=== PATIENT | female | born 1965 | race Caucasian/White ===

== ENCOUNTER 2025-04-28 14:43 | Emergency (ER) | payer OTHER, SELFPAY ==
[2025-04-28 15:10] VITALS: BP 179/83; PULSE 92; RESP 20; TEMP 36.4; O2SAT 99; BMI 24.0
--- NOTE | 2025-04-28 15:16 | ED.GENADULT ---
HPI - General Adult General Chief complaint: Weakness Stated complaint: weak, weight loss Time Seen by Provider: 04/28/25 15:17 History of Present Illness HPI narrative: Arrives with complaints of weakness that started today, and weight loss . Reports she has lost 40 lbs over the past few months, despite eating normally and not trying to lose weight. Alert and oriented, VSS, ABCs intact. 60-year-old woman presenting to the emergency department with concern of weakness or fatigue and weight loss. Somewhere since the beginning of the year has lost approximately 40 lb. Does sound like she has an active job. She might not eat over the course the day but makes up for it in the evenings. She feels she has a healthy appetite. Does have a more remote history of diabetes and was ultimately discontinued from metformin. She has not been to a medical provider in a very long time and her significant other's finally coaxed her to come in to the emergency department for evaluation. She has not been experiencing any chest or abdominal pain. No unusual stooling. No urinary frequency. No chest pain or shortness of breath. No unusual lumps or masses. She does not do self-breast exams. She did have a colonoscopy and reports that to have been normal and would have been within the last 10 years. She does continue to smoke. No unusual rashes or wounds. No unusual rashes or inflamed joints. She has had some pain in the left SI joint intermittently as demonstrated, sometimes after period of prolonged sitting. She does note that her feet, particularly the bottoms of her feet will get tingly periodically; seems to be maybe after prolonged time on her feet. It also sounds as though just generally decreased sensation on her feet where she says a fly would land on it and she would not actually feel it. Sleep tends to be terrible. She does use about 10 mg of melatonin to help her go to sleep. She says her just mind just goes. That does usually work and then will wake up for 5 hours later needing to pee and often has a hard time falling back to sleep. Does not describe herself as depressed. Family history of colon cancer in her father and throat and brain cancer in her brother who also smoked, sounds like heavily. Related Data Home Medications ?Medication ?Instructions ?Recorded ?Confirmed No Known Home Medications 04/28/25 04/28/25 Allergies Allergy/AdvReac Type Severity Reaction Status Date / Time No Known Drug Allergies Allergy Verified 04/28/25 15:09 Review of Systems Status of ROS: Reports: 6 or more systems reviewed and unremarkable except as noted in History and below Exam Narrative: Exam Narrative: Very pleasant. Does engage rather energeticly. Oropharynx with upper denture plate. Lower jaw dental erosion without evidence of inflammation or swelling. Neck is supple without lymphadenopathy. No thyromegaly. No axillary lymphadenopathy. Lungs are clear. Heart in regular rate and rhythm without murmur or gallop. Abdomen is soft and nontender. No masses appreciated. Extremities are well perfused without edema. She is moving all extremities without difficulty, fluidly. No tremor. No focal deficits appreciated. Did not test foot sensation. Cranial nerves 2-12 intact. Pupils are 3 mm and equal. Const: Vital Signs, click to edit/add: Vital Signs - 24 hr 04/28/25 15:10 04/28/25 18:18 Temperature 97.5 F L 97.6 F Pulse Rate [Pulse Oximeter] 92 69 Respiratory Rate 20 18 Blood Pressure [Ri t Upper Arm] 179/83 H 161/94 H Pulse Oximetry 99 99 Oxygen Delivery Me thod Room Air Room Air Documenting provider has reviewed patient's vital signs: yes Course Vital Signs Vital signs: Initial Vital Signs Temperature 97.5 F L 04/28/25 15:10 Temperature Source Temporal Artery Scan 04/28/25 15:10 Pulse Rate 92 04/28/25 15:10 Respiratory Rate 20 04/28/25 15:10 Blood Pressure 179/83 H 04/28/25 15:10 Blood Pressure Mean 115 H 04/28/25 15:10 Pulse Oximetry 99 04/28/25 15:10 Oxygen Delivery Method Room Air 04/28/25 15:10 Vital Signs Temperature 97.5 F L 04/28/25 15:10 Pulse Rate 92 04/28/25 15:10 Respiratory Rate 20 04/28/25 15:10 Blood Pressure 179/83 H 04/28/25 15:10 Pulse Oximetry 99 04/28/25 15:10 Oxygen Delivery Method Room Air 04/28/25 15:10 Temperature 97.6 F 04/28/25 18:18 Pulse Rate 69 04/28/25 18:18 Respiratory Rate 18 04/28/25 18:18 Blood Pressure 161/94 H 04/28/25 18:18 Pulse Oximetry 99 04/28/25 18:18 Oxygen Delivery Method Room Air 04/28/25 18:18 Medical Decision Making MDM Narrative Medical decision making narrative: Unintentional weight loss could be caused undiagnosed cancer. Anemia? Perhaps food allergy of some sort perhaps parasitic infection; might see some degree of eosinophilia or uncontrolled diabetes; will add hemoglobin A1c. Hormonal imbalance/ hyperthyroidism. Rheumatological disease/disorder; checking basic inflammatory markers. Does not seem to have episodic weakness to suggest more of a neuromuscular disorder. Appears to be otherwise emotionally well. Certainly would recommend tobacco cessation. I guess at this point would start with broad laboratory evaluation including inflammatory markers and TSH. Depending on results might focus imaging or may still need scans regardless. Labs returned WNL with a couple pending prior to departure. Later testing might include evaluation for Lymes though she does not describe the aches and headache/mental fatigue/inflammatory changes that I might expect. We did discuss broad imaging to look for further potential etiology of fatigue and weight loss. Debora instead decided to establish and follow-up in primary care for further exploration/treatment. See patient discharge plan for further discussion It was a real pleasure to meet you here today. Best wishes in follow-up to figure this all out. I would call 1st thing Thursday morning to schedule appointment as discussed. 2 more lab tests are pending here and will not require action in the immediate but might be helpful going forward. Lab Data Lab results reviewed: Yes I reviewed the patient's lab results Labs: Lab Results 04/28/25 04/28/25 04/28/25 Range/Units 16:17 16:40 18:01 WBC 10.09 (4.50-11.00) K/uL RBC 5.08 (4.00-5.20) m/uL Hgb 14.8 (12.0-16.0) gm/dL Hct 44.3 (33.0-51.0) % MCV 87 (80-100) fL MCH 29 (26-34) pg MCHC 33 (32-36) gm/dL RDW Coeff of Matthew 12.6 (11.5-15.5) % Plt Count 234 (140-440) K/uL Neut % (Auto) 64.1 (42.0-72.0) % Lymph % (Auto) 27.9 (20-44) % Marion % (Auto) 6.2 (0.0-11.0) % Eos % (Auto) 1.5 (0.0-7.0) % Baso % (Auto) 0.2 (0.0-3.0) % Neut # (Auto) 6.46 (1.7-7.0) K/uL Lymph # (Auto) 2.82 (0.90-2.90) K/uL Marion # (Auto) 0.60 (0.00-0.90) K/UL Eos # (Auto) 0.15 (0.00-0.50) K/uL Baso # (Auto) 0.02 (0.00-0.30) K/uL Abs Immat Gran (auto) 0.01 (0.00-0.30) K/uL Imm/Tot Granulo (auto) 0.1 % ESR 4 (2-20) mm/hr Sodium 139 (135-149) mmol/L Potassium 3.7 (3.6-5.1) mmol/L Chloride 103 (96-114) mmol/L Carbon Dioxide 30 (20-32) mmol/L Anion Gap 6 L (7-15) mEq/L BUN 9 (7-30) mg/dL Creatinine 0.6 (0.5-1.5) mg/dL Estimated Creat Clear 50.37 Estimated GFR 101 ml/min Glucose 225 H (60-115) mg/dL Hemoglobin A1c 10.2 H (0-5.6) % Calcium 9.7 (8.4-10.6) mg/dL Total Bilirubin 0.4 (0.1-1.5) mg/dL Direct Bilirubin 0.2 (0.0-0.5) mg/dL AST 22 (12-35) U/L ALT 17 (4-35) U/L Alkaline Phosphatase 71 (40-150) U/L C-Reactive Protein < 0.5 L (0.5-1.0) mg/dL Total Protein 7.6 (6.0-8.3) g/dL Albumin 4.4 (3.3-5.0) g/dL Lipase 214 (23-300) U/L TSH 2.020 (0.270-4.20) uIU/mL Urine Color Yellow (Yellow) Urine Appearance Clear (Clear) Urine pH 6.5 (5.0-8.5) Ur Specific [place] 1.010 (1.000-1.030) Urine Protein Negative (Negative) Urine Glucose (UA) 2+ A (Negative) Urine Ketones Negative (Negative) Urine Blood Negative (Negative) Urine Nitrite Negative (Negative) Urine Bilirubin Negative (Negative) Urine Urobilinogen 0.2 (0.2-1.0) Ur Leukocyte Esterase Negative (Negative) Urine RBC 0-2 (0-2) Urine WBC 0-2 (0-5) Ur Squamous Epith Cells None (None-Few) Urine Bacteria None (None) Lab Acknowledgement Test Added Discharge Plan Discharge Clinical Impression: Unintentional weight loss, Fatigue Patient Disposition: Home w/ Parent or Adult Condition: Stable Additional Instructions: It was a real pleasure to meet you here today. Best wishes in follow-up to figure this all out. I would call 1st thing Thursday morning to schedule appointment as discussed. 2 more lab tests are pending here and will not require action in the immediate but might be helpful going forward. Prescriptions: No Action No Known Home Medications Follow Up/Referrals: Provider,Not a Local [Primary Care Provider, Family Practice] Stand Alone Forms: [facility]vi[facility] [employer] Info Instructions
[2025-04-28 16:37] LABS: Appearance Urine Clear (Clear)
[2025-04-28 16:49] LABS: Hematocrit 44.3 % (33.0-51.0); Hemoglobin* 14.8 gm/dL (12.0-16.0); Immature Granulocytes Abs Auto 0.01 K/uL (0.00-0.30); Immature Granulocytes Pct Auto 0.1 %; Lymphocytes Absolute Auto 2.82 K/uL (0.90-2.90); Mean Corpuscular HGB Conc 33 gm/dL (32-36); Mean Corpuscular Hemoglobin 29 pg (26-34); Mean Corpuscular Volume 87 fL (80-100); RDW Coefficient of Variation % 12.6 % (11.5-15.5); Red Blood Count 5.08 m/uL (4.00-5.20); White Blood Count* 10.09 K/uL (4.50-11.00)
[2025-04-28 16:54] LABS: Slide Review Reflex No
[2025-04-28 17:00] LABS: Albumin* 4.4 g/dL (3.3-5.0); Chloride* 103 mmol/L (96-114); Sodium* 139 mmol/L (135-149)
[2025-04-28 17:01] LABS: Potassium* 3.7 mmol/L (3.6-5.1)
[2025-04-28 17:03] LABS: Blood Urea Nitrogen* 9 mg/dL (7-30); Creatinine* 0.6 mg/dL (0.5-1.5); Est. Creatinine Clearance* 50.37; Estimated Glomerular Filt Rate 101 ml/min
[2025-04-28 17:04] LABS: Alanine Aminotransferase* 17 U/L (4-35); Alkaline Phosphatase* 71 U/L (40-150); Anion Gap 6 mEq/L (7-15); Aspartate Amino Transferase* 22 U/L (12-35); Bilirubin Direct* 0.2 mg/dL (0.0-0.5); Bilirubin Total* 0.4 mg/dL (0.1-1.5); Calcium* 9.7 mg/dL (8.4-10.6); Carbon Dioxide* 30 mmol/L (20-32); Glucose* 225 mg/dL (60-115); Total Protein* 7.6 g/dL (6.0-8.3)
[2025-04-28 18:18] VITALS: BP 161/94; PULSE 69; RESP 18; TEMP 36.4; O2SAT 99
[2025-04-28 19:27] LABS: Erythrocyte SedimentationRate* 4 mm/hr (2-20)
== END 2025-04-28 18:25 | disposition home or self-care (01) ==
PROVIDERS: Emergency Provider Family Medicine
DX: R63.4 Abnormal weight loss (principal); R53.83 Other fatigue
CPT/HCPCS: 36415; 80048; 80076; 81001; 83036; 83690; 84443; 85025; 85651; 86140; 99283; 99284

== ENCOUNTER 2025-05-22 14:14 | Emergency (ER) | payer OTHER, SELFPAY ==
[2025-05-22] VITALS (16 sets, daily range): BP systolic 148–171; BP diastolic 77–90; PULSE 67–89; RESP 6–51; TEMP 36.9; O2SAT 96–100; BMI 24.3
--- NOTE | 2025-05-22 16:54 | ED.ARRPALP ---
HPI - Arrhythmia/Palpitations General Time Seen by Provider: 16:55 Date Seen: 05/22/25 Chief Complaint: Arrhythmia/Palpitations Stated Complaint: rapid heart rate just don't feel right Time Seen by Provider: 05/22/25 16:52 Source: patient, RN notes reviewed and old records reviewed Mode of arrival: ambulatory Limitations: no limitations History of Present Illness HPI narrative: This 60-year-old female is coming in with a sense of elevated heart rate, body aching just not feeling well. She notes that she has had unintentional weight loss for probably over a year. She does not have a primary care provider. She states she was in 3 weeks ago. Did review her ED visit from April 28. She had appropriate labs including inflammatory markers, hemoglobin A1c and TSH. Everything was normal at time of discharge but the sed rate and hemoglobin A1c were pending. The hemoglobin A1c task got completed and it does not look like there was any call back. I think somebody completing the test looks like they were sending it on to Dr. Ag. This got closed out, cannot really comment for sure but did attempt to try to follow this trail. She notes just generalized achiness. She used to be almost 300 lb and states she is down to about 140 now. She is a smoker, no cough or cold symptoms, no shortness of breath, no chest pain. She does not feel like her heart is racing now. She does not note any joint pains. She has had no nausea vomiting, no abdominal pain, no diarrhea, no blood in stools, no vaginal bleeding, no urinary symptoms. She is not up-to-date on her colonoscopy. She feels muscle achiness. She will take some Tylenol, takes no other medicines. Related Data Previous Rx's ?Medication ?Instructions ?Recorded metformin 500 mg tablet,extended 500 mg PO DAILY #30 tabs 05/22/25 release 24 hr Allergies Allergy/AdvReac Type Severity Reaction Status Date / Time No Known Drug Allergies Allergy Verified 05/22/25 14:40 Review of Systems Status of ROS: Reports: 6 or more systems reviewed and unremarkable except as noted in History and below [facility] Social History Smoking Status: Current every day smoker What tobacco products do you use: cigarettes Do you use any of these nicotine containing products: None Second hand tobacco smoke exposure: No How often do you have a drink containing alcohol: never AUDIT-C Alcohol total score: 0 Non-prescribed substance use: denies use Exam Const: Vital Signs, click to edit/add: Vital Signs - 24 hr 05/22/25 14:40 05/22/25 17:21 05/22/25 17:24 Temperature 98.5 F Pulse Rate Pulse Rate [Pulse Oximeter] 89 Respiratory Rate 20 51 H Blood Pressure Blood Pressure [Ri ght Upper Arm] 148/85 H Pulse Oximetry 96 98 Oxygen Delivery Me thod Room Air 05/22/25 17:26 05/22/25 17:30 05/22/25 17:32 Temperature Pulse Rate 78 75 77 Pulse Rate [Pulse Oximeter] Respiratory Rate 17 31 H 20 Blood Pressure 158/77 H 153/77 H Blood Pressure [Ri ght Upper Arm] Pulse Oximetry 98 99 99 Oxygen Delivery Me thod 05/22/25 17:33 05/22/25 17:45 05/22/25 18:00 Temperature Pulse Rate 76 72 67 Pulse Rate [Pulse Oximeter] Respiratory Rate 11 L 8 L 10 L Blood Pressure Blood Pressure [Ri ght Upper Arm] Pulse Oximetry 98 99 97 Oxygen Delivery Me thod 05/22/25 18:02 05/22/25 18:15 05/22/25 18:30 Temperature Pulse Rate 70 68 74 Pulse Rate [Pulse Oximeter] Respiratory Rate 6 L 23 10 L Blood Pressure 166/82 H Blood Pressure [Ri ght Upper Arm] Pulse Oximetry 97 98 98 Oxygen Delivery Me thod 05/22/25 18:32 05/22/25 18:45 05/22/25 19:00 Temperature Pulse Rate 80 77 71 Pulse Rate [Pulse Oximeter] Respiratory Rate 23 16 12 Blood Pressure 171/90 H Blood Pressure [Ri ght Upper Arm] Pulse Oximetry 100 98 100 Oxygen Delivery Me thod 05/22/25 19:02 Temperature Pulse Rate 77 Pulse Rate [Pulse Oximeter] Respiratory Rate 14 Blood Pressure 171/83 H Blood Pressure [Ri ght Upper Arm] Pulse Oximetry 99 Oxygen Delivery Me thod This 60-year-old female is alert, interactive, no apparent distress. Sclera clear, face atraumatic, symmetrical facial function. Speech is normal. Breathing easy on room air, lungs are clear, good air entry, no wheezing or crackles, no tachypnea, no accessory muscle use. CV regular rate and rhythm, no significant murmur, normal S1-S2, no S3-S4. Abdomen is soft, nontender, nondistended, no organomegaly, rebound or guarding, no masses. She has no lower extremity edema, no point tenderness necessarily over any muscles, no joint pains on range of motion or effusions noted of her joints. Skin without rash. Neck is supple, no adenopathy, no thyromegaly masses or nodules. Documenting provider has reviewed patient's vital signs: yes Course Course ED Course: Nursing staff had done an EKG, this is reassuring. Will put her on pulse oximetry and cardiac monitoring but she feels no sense of the fast heart rate or palpitations now. Will recheck some basic labs, she had many labs done in April 28, do not need to repeat a TSH as it was normal then. Do see that her hemoglobin A1c came back elevated will have to update her that she is diabetic. Will get a basic metabolic panel, troponin, proBNP, magnesium, troponin and repeat a CBC. Will see if there is any cardiac markers off. Will also get a portable chest x-ray. I do think her weight loss is likely from the diabetes. Reevaluation(s) Time of Reevaluation #1: 17:16 Reevaluation #1: Updated Debora that her hemoglobin A1c was elevated at 10.2% from her ED visit on April 28. She did not get a call back on this. The task looked like it was completed. This was a pending test at time of discharge from the ER in that visit and the she never got an update on it. I apologized to her and reviewed with her I am not sure exactly what happened. She is diabetic. I do think we need to continue looking at her workup for her sense of arrhythmia or palpitations today. She felt like her heart was going fast for most of the morning, does not feel this now. Will have her on cardiac monitoring, pulse oximetry as planned. Time of Reevaluation #2: 18:43 Reevaluation #2: Have reviewed with Debora and her daughter whom is here now the diabetes again. We have discussed metformin. We discussed that there is minimal risk for hypoglycemia, will need kidney functions recheck DIS to ensure no changes with this medicine. It is usually protective for most people but do need initial monitoring to make sure no worsening of kidney function. Will give her the number for Clinic, needs a follow-up within the next week, unfortunately clinic is closed now and we cannot make the appointment. She is complaining of left sciatica, her daughter talks about this. Reviewed that prednisone would be the medication of choice but do not feel she should have this with uncontrolled diabetes. They can discuss physical therapy referral at follow-up, can further evaluate this. She will use Tylenol in the interim. I do believe her weight loss is likely from uncontrolled diabetes. As for her episode of fast heart rate earlier, we have discussed doing a follow-up Zio patch. She has had no tachycardia or arrhythmia here. We reviewed that that does not mean that she does not have underlying arrhythmia, it just means we have not seen it while she is monitored here. She is in agreement to do the Zio patch. She will follow up in clinic, if there are abnormalities or arrhythmia documented on the Zio patch, may need to see Cardiology which can be done through clinic. Vital Signs Vital signs: Initial Vital Signs Temperature 98.5 F 05/22/25 14:40 Temperature Source Temporal Artery Scan 05/22/25 14:40 Pulse Rate 89 05/22/25 14:40 Respiratory Rate 20 05/22/25 14:40 Blood Pressure 148/85 H 05/22/25 14:40 Blood Pressure Mean 106 H 05/22/25 14:40 Pulse Oximetry 96 05/22/25 14:40 Oxygen Delivery Method Room Air 05/22/25 14:40 Vital Signs Temperature 98.5 F 05/22/25 14:40 Pulse Rate 89 05/22/25 14:40 Respiratory Rate 20 05/22/25 14:40 Blood Pressure 148/85 H 05/22/25 14:40 Pulse Oximetry 96 05/22/25 14:40 Oxygen Delivery Method Room Air 05/22/25 14:40 Temperature 98.5 F 05/22/25 14:40 Pulse Rate 77 05/22/25 19:02 Respiratory Rate 14 05/22/25 19:02 Blood Pressure 171/83 H 05/22/25 19:02 Pulse Oximetry 99 05/22/25 19:02 Oxygen Delivery Method Room Air 05/22/25 14:40 MDM - Arrhythmia/Palpitations Lab Data Attestation: I reviewed the patient's lab results. Labs: Lab Results 05/22/25 Range/Units 17:22 Sodium 138 (135-149) mmol/L Potassium 3.7 (3.6-5.1) mmol/L Chloride 101 (96-114) mmol/L Carbon Dioxide 29 (20-32) mmol/L Anion Gap 8 (7-15) mEq/L BUN 9 (7-30) mg/dL Creatinine 0.6 (0.5-1.5) mg/dL Estimated Creat Clear 52.49 Estimated GFR 101 ml/min Glucose 203 H (60-115) mg/dL Calcium 9.6 (8.4-10.6) mg/dL Magnesium 1.8 (1.5-2.6) mg/dL Total Creatine Kinase 59 (41-117) U/L Troponin I < 0.01 (0.01-0.04) ng/mL NT-Pro-B Natriuret Pep 431 H (See Note) pg/mL Imaging Data Chest x-ray: Attestation: I have reviewed the pertinent imaging results. My impression: Do not appreciate any mass, no congestive heart failure, no acute pathology on my preliminary review will await Radiology over-read. Radiologist's impression: Patient: DEBORA SIDDIQI Facility:?[facility] Patient ID:?[id number] Site Patient ID:?[id number]. Site :?[id number] Study:?XRay-Chest PORTABLE ONE VIEW-05/22/2025 5:18:31 PM Ordering Physician:?Luis Escalera Final Report: Indication: Heart racing. Tachycardia. Palpitations. Technique: Chest 1 view. Comparison: None. Findings/Impression: The heart is not abnormally enlarged. Mediastinal contours are grossly within normal limits. No definite confluent airspace opacification appreciated. No pleural effusion or pneumothorax. No acute osseous abnormality. Dictated by Marco A Torres MD @ 05/22/2025 6:27:56 PM (Electronic Signature) ECG Data Attestation: I personally reviewed and interpreted this ECG as follows: (Normal sinus rhythm, 92 beats per minute. Possible left atrial enlargement. Probable LVH by voltage criteria. Poor R-wave progression anterior precordial leads without any acute ischemia.) ECG interpretation date: 05/22/25 ECG interpretation time: 17:24 Prior ECG tracings: not available for review Discharge Plan Discharge Clinical Impression: Heart rate fast, Type 2 diabetes mellitus Patient Disposition: Home, Self-Care Condition: Stable Instructions: Foot Care for People with Diabetes (ED), Type 2 Diabetes in Adults: New Diagnosis (DC), Diabetes and Nutrition (ED), Diabetes and Exercise (ED) Additional Instructions: We are going to initiate metformin for you to start to get control of your diabetes. You need to get a follow-up in clinic within the next week. The phone number to the [facility] is [phone]. I have given you some basic information on diabetes, please review this. Complete the Zio patch as guided by Radiology instructions. You can have this addressed in follow-up in clinic here, can further review your complaint of sciatica as well. Activity Level: Activity as Tolerated Discharge Diet: Diabetic Diet Detail: They can refer you for dietitian consult with the new diagnosis of diabetes, this can be initiated when you follow-up through the clinic. Prescriptions: New metformin 500 mg tablet extended release 24 hr 500 mg PO DAILY Qty: 30 0RF Follow Up/Referrals: Provider,Not a Local [Primary Care Provider, [facility]] Stand Alone Forms: [employer] Info Instructions
--- NOTE | 2025-05-22 17:04 | CRLHL7_ITS ---
For Patients: As a result of the Century Cures Act, medical imaging exams and procedure reports are released immediately into your electronic medical record. You may view this report before your referring provider. If you have questions, please contact your health care provider. Indication: Heart racing. Tachycardia. Palpitations. Technique: Chest 1 view. Comparison: None. Findings/Impression: The heart is not abnormally enlarged. Mediastinal contours are grossly within normal limits. No definite confluent airspace opacification appreciated. No pleural effusion or pneumothorax. No acute osseous abnormality. Dictated by Marco A Torres MD @ 05/22/2025 6:27:56 PM (Electronically Signed)
--- OUTSIDE RECORDS SUMMARY | 2025-05-22 17:13 | XMS_ITS | Clinical Summary ---
Author Organization [facility] Address [address] [place] [id number] Care Team Providers Care Machine Packager Name Role Phone Unavailable Primary Care Provider Unavailabl e Allergies No known active allergies Medications MULTIVITAMIN ORAL None Entered 0 Active melatonin 3 mg tablet Take 1 tablet by mouth at bedtime. 0 06/04/20 17 Active naproxen (ALEVE) 220 mg tablet Take 2 tablets by mouth 2 times daily with meals. 0 06/04/20 17 Active blood sugar diagnostic (CONTOUR NEXT STRIPS) stripIndications:T ype 2 diabetes mellitus without complication, without long-term current use of insulin (HC) E11.65 NIDDM type II, uncontrolled - Test 3 times/day, Reason: High A1C 100 Strip 5 06/09/20 17 Active lancets (MICROLET LANCET)Indications :Type 2 diabetes mellitus without complication, without long-term current use of insulin (HC) Test 3x daily 100 Each 5 06/09/20 17 Active simvastatin (ZOCOR) 20 mg tabletIndications: Other hyperlipidemia Take 1 tablet by mouth at bedtime. 90 tablet 4 08/03/20 18 Active glimepiride (AMARYL) 4 mg tabletIndications: Type 2 diabetes mellitus without complication, without long-term current use of insulin (HC) TAKE ONE TABLET BY MOUTH ONCE EVERY DAY WITH A MEAL. 30 Tablet 09/02/19 23 Active metFORMIN (GLUCOPHAGE XR) 500 mg Extended-Release tabletIndications: Type 2 diabetes mellitus without complication, without long-term current use of insulin (HC) TAKE FOUR TABLETS BY MOUTH ONCE DAILY WITH EVENING MEAL. 120 Tablet 09/02/19 23 Active Active Problems Problem Noted Date Diagnosed Date Hyperlipidemia 06/14/2013 Diabetes mellitus type II 08/17/2012 Overview (11/15/2013): a system change updated this record. This will not affect patient care or billing. This comment can be deleted. Mixed incontinence urge and stress (male)(female ) 06/24/2012 Family history of malignant neoplasm of gastrointestinal tract 09/12/2011 Overview (09/12/2011): Colonoscopy 08/2011 normal repeat in 5 years Pre-diabetes 08/07/2011 Knee joint replacement by other means 10/20/2007 Depressive disorder, not elsewhere classified Osteoarthrosis, unspecified whether generalized or localized, unspecified site 12/11/2006 Overview (12/11/2006): Both knees 07/2005 Resolved Problems Problem Noted Date Diagnosed Date Resolved Date intermediate project manager (current) use of anticoagulants 01/21/2008 07/11/2014 intermediate project manager (current) use of anticoagulants 10/08/2007 10/20/2007 Overview (10/20/2007): not on termite inspector anticoag custodial (current) use of anticoagulants 09/30/2007 10/20/2007 Immunizations Immunization Administration Dates Next Due COVID-19 vaccine (CaseMetrix-J&J) JUSTYN MITCHELL COVID-19 vaccine (SysClass 30mcg/0.3mL) P JUSTYN Maldonado 08/07/2021 Td (Age >=7 Years) 11/06/1998 Tdap 03/27/2009 Family History Medical History Relation Name Comments Cancer Brother 2 lung cancer, ag e 58 Arthritis Father Cancer-colon Father and stomach Heart Disease Father bypass 4 Hypertension Father Diabetes Mother Hypertension Mother Other Mother emphysema and p acemaker Diabetes Sister 1 both sisters, a ges 61 and 60 Thyroid Disease Sister 2 thyroid canc er Cancer-breast No Family History Relation Name Status Comments Brother 1 (Age 59) cancer, saad ng Brother 2 Father Mother Sister 1 Sister 2 Social History Tobacco Use Types Packs/Day Years Used Date Smoking Tobacco: Every Day Cigarettes Smokeless Tobacco: Never Tobacco Cessation:Ready to Q uit: No; Counseling Given: Yes Alcohol Use Standard Drinks/Week Comments No 0 (1 standard drink = 0.6 oz pur e alcohol) PHQ-2 Answer Date Recorded PHQ-2 TOTAL SCORE 3 02/14/2021 Social Connections Answer Date Recorded Frequency of Communication with Friends and Fami ly Not on file 08/22/2021 Financial Resource Strain Answer Date R ecorded Difficulty of Paying Living Expenses Not on file 08/22/2021 Difficulty of Paying Living Expenses Not on file 08/22/2021 Comments No Sex and Gender Information Value Date Recorded Sex Assigned at Not on file Legal Sex Female 5:24 AM COIN COUNTER AND WRAPPER Gender Identity Not on file Sexual Orientation Not on file Occupation Industry Job Start Date Job End Date Not on file Not on file Not on file Not on file Obstetrics History Para Term AB IAB SAB Ectopic Multiple Livin g Live Births 2 2 Date Outcome GA Total Labor Labor/2nd/3rd Weight Sex Type Anes PTL Yue A1 A5 Name Clin Last Filed Vital Signs Vital Sign Reading Time Taken Comments Blood Pressure 129/86 08/20/2021 7:11 AM COIN COUNTER AND WRAPPER Pulse 94 08/20/2021 7:11 AM COIN COUNTER AND WRAPPER Temperature 36.6 C (97.9 F) 08/20/2021 7:11 AM COIN COUNTER AND WRAPPER Respiratory Rate 16 08/26/2012 12:5 4 PM COIN COUNTER AND WRAPPER Oxygen Saturation 100% 08/20/2021 7:11 AM COIN COUNTER AND WRAPPER Inhaled Oxygen Concentration - - Weight 76.1 kg (167 lb 12.8 oz) 05/29/2021 8:47 AM CDT Height 163.6 cm (5' 4.41) 05/29/2021 8:47 AM CD T Body Mass Index 28.44 05/29/2021 8:47 AM CDT Plan of Treatment Health Maintenance Due Date Last Done Comments Colonoscopy through age 75 1963 HIV for age 15-65 1978 Hepatitis C screening for age 18-79 1981 Pneumococcal series for age 50+ (1 of 1 - PCV) 2013 Zoster (shingles) series for age 50+ (1 of 2) 2013 Mammogram for age 45-75 11/25/2018 11/26/19 18, 09/09/2016, 06/07/2013, Additional history exists Tetanus booster 03/27/2019 03/27/2009, 11/06/1998 Depression screening for age 12+ 02/14/2022 02/14/2021, 02/14/2021, 08/06/2018, Additional history exists BMI (ht and wt on same day) for age 18+ 05/29/2022 05/29/2021, 02/14/2021, 08/03/2018, Additional history exists COVID-19 vaccine series (2024- season) 2025 08/07/2021, 01/29/2021 Influenza Vaccine (#1) 2025 Lipids for age 45-75 05/29/2026 05/29/2021, 07/30/2018, 11/24/2017, Additional history exists RSV vaccine for adults or (1 - 1-dose 75+ series) 2038 Hepatitis B series for 19+ Aged Out N o longer eligible based on patient's age to complete this topic Procedures Procedure Name Priority Date/Time Associated Diagnosis Comments LIPID PANEL W REFLEX MEASURED LDL Add On 05/29/2021 8:39 AM CDT Screening cholesterol level XR MAMMO BILAT SCREENING Routine 11/25/2017 8:53 AM CDT Visit for screening mammogram from Last 3 Months or Most Recently Relevant to Health Maintenance Results * (ABNORMAL) LIPID PANEL W REFLEX MEASURED LDL (05/29/2021 8:39 AM CDT) CHOLESTEROL,TOTAL 172 100 - 199 mg/dL 05/29/2021 5:06 PM CDT [facility] TRIGLYCERIDES 88 <150 mg/dL 05/29/2021 5:06 PM CDT [facility] HDL CHOLESTEROL 38(L) >40 mg/dL 5:06 PM CDT [facility] NON-HDL CHOLESTEROL 134 <145 mg/dl 05/29/2021 5:06 PM CDT [facility] CHOL/HDL RATIO 4.53(H) <4.50 05/29/2021 5:06 PM CDT [facility] LDL CHOLESTEROL 116 <=130 mg/dL 05/29/2021 5:06 PM CDT [facility] VLDL CHOLESTEROL 18 <=30 mg/dL 05/29/2021 5:06 PM CDT [facility] PROVIDER ORDERED STATUS RANDOM 05/29/2021 5:06 PM CDT [facility] Blood BLOOD SPECIMEN / Unknown Venipuncture / Unknown 05/29/2021 8:39 AM CDT 05/29/2021 8:39 AM CDT Dusty Villalpando MD CHEMISTRY Final Re sult [facility] [address] [place] [address], [facility] [address] [place] [address], [place] [phone] * XR MAMMO BILAT SCREENING (11/25/2017 8:53 AM CDT) Anatomical Region Laterality Modality BREASTS, Breast Left, Breast Right Bilateral Mammography Impressions 11/25/2017 12:15 PM CDT There is no radiographic evidence for malignancy. Recommend annual mammograms. A lay language report of this examination will be provided to the patient. MAMMOGRAM ASSESSMENT: ACR 2 Benign Narrative 11/25/2017 12:15 PM CDT XR MAMMO BILAT SCREENING [[id number]] CLINICAL HISTORY: This is an asymptomatic 52 y.o. patient. INDICATION FOR EXAM: Mammogram Screening. TECHNIQUE: CC & MLO views were obtained. This digital study was evaluated with the assistance of Computer-Aided Detection. COMPARISON FILMS: Yes 09/09/16 [facility] 06/07/13 [facility] FINDINGS: Mammographically, the breast tissue has scattered fibroglandular densities. No suspicious masses or microcalcifications. Benign appearing calcifications within both breasts. Nain Narayanan FUSE CUTTER MAMMO F inal Result from Last 3 Months or Most Recently Relevant to Health Maintenance Insurance TRAVELERS
[2025-05-22 17:55] LABS: Chloride* 101 mmol/L (96-114); Sodium* 138 mmol/L (135-149)
[2025-05-22 17:56] LABS: Potassium* 3.7 mmol/L (3.6-5.1)
[2025-05-22 17:58] LABS: Anion Gap 8 mEq/L (7-15); Blood Urea Nitrogen* 9 mg/dL (7-30); Carbon Dioxide* 29 mmol/L (20-32); Creatine Kinase* 59 U/L (41-117); Creatinine* 0.6 mg/dL (0.5-1.5); Est. Creatinine Clearance* 52.49; Estimated Glomerular Filt Rate 101 ml/min
[2025-05-22 17:59] LABS: Calcium* 9.6 mg/dL (8.4-10.6); Glucose* 203 mg/dL (60-115)
[2025-05-22 18:10] LABS: NT Pro B Type NatriureticPept* 431 pg/mL (See Note)
== END 2025-05-22 19:32 | disposition home or self-care (01) ==
PROVIDERS: Emergency Provider Family Medicine
DX: R00.2 Palpitations (principal); E11.9 Type 2 diabetes mellitus without complications
CPT/HCPCS: 36415; 71045; 80048; 82550; 83735; 83880; 84484; 93246; 94761; 99284

== ENCOUNTER 2025-08-01 13:37 | Outpatient (CLI) | payer OTHER, SELFPAY | END 2025-08-01 13:38 | disposition home or self-care (01) | LOC: NFLDREF 08-06 03:00 | PROVIDERS: PCP Internal Medicine; Referring Provider Internal Medicine; Visit Provider Internal Medicine | DX: I10 Essential (primary) hypertension (principal); E11.9 Type 2 diabetes mellitus without complications | CPT/HCPCS: 80053; 80061; 82043; 82570 ==